=== PATIENT | female | born 1945 | race Caucasian/White ===

== ENCOUNTER 2021-09-09 10:58 | Outpatient (RCR) | payer MEDICARE, SELFPAY ==
[2021-09-09 11:52] VITALS: PULSE 78
== END 2021-09-26 15:27 | disposition home or self-care (01) ==
LOC: ANHCPREHAB 10:58
PROVIDERS: PCP Physician Assistant
DX: J43.9 Emphysema, unspecified (principal)
CPT/HCPCS: 94625

== ENCOUNTER 2025-05-07 10:55 | Emergency (ER) | payer MEDICARE, SELFPAY ==
[2025-05-07] VITALS (15 sets, daily range): BP systolic 92–163; BP diastolic 75–114; PULSE 64–155; RESP 18–22; TEMP 36.2–36.5; O2SAT 95–100
--- NOTE | ~2025-05-07 | CT_ITS ---
EXAMINATION: CT brain wo con DATE: 05/07/2025 14:05 INDICATION: Trauma TECHNIQUE: Computed tomography (CT) of the head was performed without intravenous contrast. The dose-length product was 605.33 mGy-cm. COMPARISON: October 15, 2017 FINDINGS: No discrete or mass effect or hemorrhage. Chronic microvascular ischemic appearing white matter changes and old bilateral basal ganglia lacunar infarctions similar. No calvarial fracture. Small to moderate amount of edema and small hematoma present in the high left parietal scalp approaching the vertex. No suspicious radiopaque foreign body seen. IMPRESSION: 1. No acute intracranial abnormality or bleed. 2. Small high left parietal scalp hematoma with small to moderate amount of soft tissue swelling. Reviewed, dictated and finalized at location A. RADIATION ONCOLOGY IMPRESSION: 1. No acute intracranial abnormality or bleed. 2. Small high left parietal scalp hematoma with small to moderate amount of sof t tissue swelling.
--- NOTE | 2025-05-07 11:19 | ECG_ITS ---
Test Date: 2025-05-07 11:27:02 Measurements Intervals [place] Rate: 142 P: 0 OH: 0 QRS: 87 QRSD: 114 T: 46 QT: 311 QTc: 479 Interpretive Statements ATRIAL FIBRILLATION WITH RAPID VENTRICULAR RESPONSE RIGHT BUNDLE BRANCH BLOCK Electronically Signed On 05-07-2025 11:28:32 SMASH HAND by Isaiah Paulson D.O
[2025-05-07 11:48] LABS: Hematocrit 35.7 % (37.0-47.0); Hemoglobin 12.1 g/dL (12.0-15.0); Immature Granulocyte Percent A 0.7 % (0-0.5); Lymphocytes Absolute Auto 3.89 K/mm3 (0.9-3.2); Mean Corpuscular HGB Conc 33.9 g/dl (32-36); Mean Corpuscular Hemoglobin 31.8 pg (26-34); Mean Corpuscular Volume 93.7 fl (80-100); Nucleated Red Blood Cells Absolute Auto 0.000 K/mm3 (0.0-0.012); Nucleated Red Blood Cells Perc 0.0 % (0.0-0.2); Platelet Count Result 273 k/mm3 (150-375); Red Blood Count 3.81 M/mm3 (4.2-5.4); White Blood Count 10.0 K/mm3 (4.5-10.0)
[2025-05-07 12:01] LABS: Alanine Aminotransferase 26 U/L (6-35); Albumin Level 4.2 g/dL (3.5-5.1); Alkaline Phosphatase 76 U/L (38-126); Anion Gap 6 mmol/L (4-12); Aspartate Amino Transferase 30 U/L (14-36); Bilirubin,Total 0.7 mg/dL (0.2-1.3); Blood Urea Nitrogen 25 mg/dL (7-17); Calcium 9.1 mg/dL (8.4-10.2); Carbon Dioxide 29 mmol/L (22-30); Chloride 96 mmol/L (98-107); Estimated CRCL calculation 37 ml/min; Estimated Glomerular Filt Rate 48; Glucose 92 mg/dL (65-110); Lipase 127 U/L (23-300); Potassium 3.8 mmol/L (3.4-5.0); Sodium 131 mmol/L (137-145); Total Protein 6.6 g/dL (6.3-8.2)
[2025-05-07 12:04] LABS: INR 1.0; Prothrombin Time 13.4 Seconds (11.1-14.7)
[2025-05-07 12:05] LABS: Partial Thromboplastin Time 21.3 Seconds (22.3-36.8)
[2025-05-07 12:12] LABS: Troponin I < 0.012 ng/mL (0.000-0.034)
[2025-05-07] MEDS: LACTATED RINGERS 1,000 ML 999 ML IV CONT ×2 (12:42→15:40)
[2025-05-07] MEDS: METOPROLOL TARTRATE INJ 5 MG/5 ML VIAL IV PUSH ×2 (12:44→14:28)
--- NOTE | 2025-05-07 14:26 | ED.GENADULT ---
HPI - General Adult General Chief complaint: Fall Stated complaint: fell 05/04/25 hit head Time Seen by Provider: 05/07/25 12:53 History of Present Illness HPI narrative: 80-year-old female present to the emergency department for evaluation for head injury. Patient reports that she was walking her dog and tripped on Wednesday and struck her head. Patient present to the emergency department today for evaluation because the wound was continuing to bleed. Patient is on blood thinners. Patient denies any other pain or injury. Patient does have history of AFib with RVR and patient's heart rate was 140 at evaluation. Patient is on metoprolol but did not take this medication this morning. Related Data Home Medications ?Medication ?Instructions ?Recorded ?Confirmed ?Last Taken ?Type albuterol sulfate 90 mcg/actuation 1 puff inhalation Q4H PRN 08/25/21 09/09/21 Unknown History aerosol inhaler Shortness Of Breath apixaban 5 mg tablet (Eliquis) 5 mg PO BID 08/25/21 09/09/21 Unknown History atorvastatin 40 mg tablet 40 mg PO DAILY 08/25/21 09/09/21 Unknown History metoprolol succinate 25 mg 25 mg PO BID 08/25/21 09/09/21 Unknown History tablet,extended release 24 hr triamterene 37.5 1 tablet PO BID 08/25/21 09/09/21 Unknown History mg-hydrochlorothiazide 25 mg tablet benzonatate 200 mg capsule 600 mg PO DAILY 09/09/21 09/09/21 Unknown History budesonide 160 mcg-glycopyr 9 2 inh inhalation BID 09/09/21 09/09/21 Unknown History mcg-formot 4.8 mcg/actuation HFA inhaler (Breztri Aerosphere) Allergies Allergy/AdvReac Type Severity Reaction Status Date / Time No Known Allergies Allergy Verified 05/07/25 11:03 Review of Systems Review of Systems: All systems reviewed & are unremarkable except as noted in HPI and below PMFSH Past Medical History Medical History (Updated 05/07/25 @ 17:48 by Steven Irene MD) Age related osteoporosis COPD (chronic obstructive pulmonary disease) CAD (coronary artery disease) Arthritis Anxiety Family History Family History (System 12/05/21 @ 12:07 by Hector Barksdale) Sibling Malignant neoplasm of prostate Mother Family history of emphysema Father Hypertension Grandparent Cerebrovascular accident Social History Social History (System 12/05/21 @ 12:07 by Hector Barksdale) Smoking packs per day: 0.5 Smoking cigarettes per day: 10.0 Years smoked: 30 Smoking pack-years: 15.00 Smoking status: Former smoker Tobacco type: cigarettes Second hand tobacco smoke exposure: No Smoking end date: 06/21/13 Alcohol intake: current Substance use: unknown Exam Narrative: APPEARANCE: Well appearing, no pain, no distress, well-nourished. HEAD: Posterior scalp hematoma with no active bleeding from a small laceration EYES: PERRLA/EOMI, conjunctivae clear. NOSE: Normal no drainage EARS:TMS clear with good light reflex. THROAT: Pharynx clear, no exudate. NECK: Supple. No adenopathy, no masses. RESPIRATORY: Airway patent, respirations nonlabored. Clear to auscultation bilaterally, no rales, rhonchi, wheezing. CARDIOVASCULAR: AFib with RVR ABDOMINAL: Soft, nontender, nondistended, normal bowel sounds MUSCULOSKELETAL: Moves all extremities. Strength/ROM intact, No edema, No calf tenderness. NEURO: Alert. Cranial nerves II through XII intact. Good gait. Good coordination SKIN: Warm, dry. Normal Color Course Vital Signs Vital signs: Vital Signs Temperature 97.2 F L 05/07/25 11:02 Pulse Rate 64 05/07/25 11:02 Respiratory Rate 20 05/07/25 11:02 Blood Pressure 163/89 H 05/07/25 11:02 Pulse Oximetry 95 05/07/25 11:02 Oxygen Delivery Room Air 05/07/25 11:02 Temperature 97.7 F 05/07/25 18:00 Pulse Rate 118 H 05/07/25 18:00 Respiratory Rate 22 H 05/07/25 18:00 Blood Pressure 113/97 H 05/07/25 18:00 Pulse Oximetry 95 05/07/25 18:00 Oxygen Delivery Room Air 05/07/25 11:20 Medical Decision Making [facility] Narrative Medical decision making narrative: [age] year old female present to the emergency department for evaluation for a head injury that occurred 2 days ago. No laceration requiring repair. Head CT was negative. Patient does have AFib with RVR did not take her morning medication. Patient's heart rate did improve with a L of lactated Ringer's, IV metoprolol, her morning dose of p.o. metoprolol and a dose of Cardizem. Patient was anxious about being here and states she gets anxious her heart rate becomes elevated. Patient was offered admission for AFib with RVR but patient states she believes this is due to her anxiety and patient strongly prefers to be discharged home. Patient was educated on reasons to return to the emergency department. Differential Diagnosis Differential Diagnosis: Subdural hematoma, subarachnoid hemorrhage, tachycardia, AFib, a flutter, pneumonia, COVID, RSV influenza, dehydration, anxiety Vital Signs Vital Signs: Vital Signs Temperature 97.2 F L 05/07/25 11:02 Pulse Rate 64 05/07/25 11:02 Respiratory Rate 20 05/07/25 11:02 Blood Pressure 163/89 H 05/07/25 11:02 Pulse Oximetry 95 05/07/25 11:02 Oxygen Delivery Room Air 05/07/25 11:02 Temperature 97.7 F 05/07/25 18:00 Pulse Rate 118 H 05/07/25 18:00 Respiratory Rate 22 H 05/07/25 18:00 Blood Pressure 113/97 H 05/07/25 18:00 Pulse Oximetry 95 05/07/25 18:00 Oxygen Delivery Room Air 05/07/25 11:20 Lab Data Lab results reviewed: Yes I reviewed the patient's lab results. 05/07/25 11:40 05/07/25 11:40 Labs: Lab Results 05/07/25 Range/Units 11:40 WBC 10.0 (4.5-10.0) K/mm3 RBC 3.81 L (4.2-5.4) M/mm3 Hgb 12.1 (12.0-15.0) g/dL Hct 35.7 L (37.0-47.0) % MCV 93.7 (80-100) fl MCH 31.8 (26-34) pg MCHC 33.9 (32-36) g/dl RDW 14.0 (11.5-14.5) % Plt Count 273 (150-375) k/mm3 MPV 9.8 (7.4-10.4) fl Immature Gran % (Auto) 0.7 H (0-0.5) % Neut % (Auto) 47.4 (45.5-73.1) % Lymph % (Auto) 39.0 (18.3-44.2) % Reeves % (Auto) 11.9 H (2.6-8.5) % Eos % (Auto) 0.5 (0-4.4) % Baso % (Auto) 0.5 (0.2-1.2) % Lymph # (Auto) 3.89 H (0.9-3.2) K/mm3 Reeves # (Auto) 1.2 H (0.1-0.6) K/mm3 Eos # (Auto) 0.1 (0-0.3) K/mm3 Baso # (Auto) 0.1 (0.0-0.1) K/mm3 Abs Immat Gran (auto) 0.07 H (0.00-0.031) K/mm3 Absolute Neuts (auto) 4.7 (1.3-6.7) K/mm3 Absolute Nucleated RBC 0.000 (0.0-0.012) K/mm3 Nucleated RBC % 0.0 (0.0-0.2) % PT 13.4 (11.1-14.7) Seconds INR 1.0 APTT 21.3 L (22.3-36.8) Seconds Sodium 131 L (137-145) mmol/L Potassium 3.8 (3.4-5.0) mmol/L Chloride 96 L (98-107) mmol/L Carbon Dioxide 29 (22-30) mmol/L Anion Gap 6 (4-12) mmol/L BUN 25 H (7-17) mg/dL Creatinine 1.09 H (0.7-1.0) mg/dL Estim Creat Clear Calc 37 ml/min Estimated GFR 48 L (59 - ) Glucose 92 (65-110) mg/dL Calcium 9.1 (8.4-10.2) mg/dL Total Bilirubin 0.7 (0.2-1.3) mg/dL AST 30 (14-36) U/L ALT 26 (6-35) U/L Alkaline Phosphatase 76 (38-126) U/L Troponin I < 0.012 (0.000-0.034) ng/mL Total Protein 6.6 (6.3-8.2) g/dL Albumin 4.2 (3.5-5.1) g/dL Lipase 127 (23-300) U/L Imaging Data Radiologist's impression: Impressions Head CT 11/17/25 14:08 IMPRESSION: 1. No acute intracranial abnormality or bleed. 2. Small high left parietal scalp hematoma with small to moderate amount of soft tissue swelling. Discharge Plan Discharge Clinical Impression: Atrial fibrillation with rapid ventricular response, Head injury Patient Disposition: Home Condition: Stable Instructions: Antibiotic Form, A-fib (Atrial Fibrillation) (ED), Head Injury (ED) Additional Instructions: You were offered admission for your rapid heart rate but you preferred to be discharged home. If your heart rate is not well controlled at home then you need to return to the emergency department. Wound care as directed for the head injury. Have close follow-up with your primary care physician. Patient Language: Croatian Prescriptions: No Action metoprolol succinate 25 mg tablet extended release 24 hr 25 mg PO BID triamterene-hydrochlorothiazid 37.5-25 mg tablet 1 tablet PO BID atorvastatin 40 mg tablet 40 mg PO DAILY Eliquis 5 mg tablet 5 mg PO BID albuterol sulfate 90 mcg/actuation HFA aerosol inhaler 1 puff inhalation Q4H PRN (Reason: Shortness Of Breath) cyclobenzaprine 10 mg tablet 10 mg PO QHS Qty: 30 0RF benzonatate 200 mg Capsule 600 mg PO DAILY Breztri Aerosphere 160-9-4.8 mcg/actuation Hfa Aerosol Inhaler 2 inh INHALATION BID Follow-up/Referrals: Jesus,PRAVEENA LirianoP [Primary Care Provider, Unknown]
[2025-05-07] MEDS: METOPROLOL SUCCINATE EXT REL 25 MG TABCR PO (14:35)
--- OUTSIDE RECORDS SUMMARY | 2025-05-07 20:25 | XMS_ITS | Data Portability ---
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 Presenting with bilateral lower extremity pain at rest. She has upper extremity weakness and numbness/tingling . She applies a brace to her hands at night which helps her symptoms. She reports a previous provider has ordered a nerve conduction study, but has not completed the exam yet. She describes her feet as if she has mittens on them with a decreased sensation to her feet. The cramping to her bilateral lower extremities is her greatest concern. This most likely represents critical limb ischemia which puts her at a high risk for skin breakdown and/or loss of limb. She also displays symptoms of venous insufficiency with lower extremity edema and cramping that impacts her quality of sleep. My recommendation is lower extremity arterial and venous ultrasound for further evaluation. Of note, I discussed with her a possible upper extremity ultrasound to be performed due to the weakness to her upper extremities. However I explained to her I suspect the symptoms in her upper extremities are likely nerve related due to the nature of her symptoms (weakness, numbness, tingling). I strongly suggested she speak to her primary care provider for possible cervical and nerve involvement. I spent a total of 45 minutes with the patient. The time was spent reviewing the chart ,discussing with patient and/or family and forming a treatment plan. [email or web address] Not available 09/19/2022 00:41:41 Plan of Treatment Reminders Order Date Submit Date Provider Last Modified By Organization Details Last Modified Time Details Appointments None record ed. Lab None record ed. Referral None record ed. Procedures None record ed. Surgeries None record ed. Imaging None record ed. Medication Orders None record ed. Patient TargetsNo targets recorded. Patient InstructionsNo instructions recorded. Reason for Referral None Reported. Problems Name Problem SNOMED Code Status Onset Date Resolution Date Notes Provider Name and Address Organization Details Recorded Time Anxiety 22669048 Active 2022 davi benedict null, [place] - [facility] 3 12:56:58 Eczema 70661567 Active 2022 davi benedict [place] - [facility] 3 12:57:07 Atrial fibrillation 66782521 Active 2022 davi benedict [place], [place] - [facility] 3 12:57:18 Chronic obstructive pulmonary disease 44392683 Active 2022 davi benedict [place] - [facility] 3 12:57:27 Hyperlipidemia 17538324 Active 2022 davi benedict [place] [facility] 3 12:57:35 Cerebrovascular disease 81259716 Active 2022 davi benedict null, [place] - [facility] 3 12:57:45 Problem Notes None recorded. Medical Equipment None Reported. Allergies No known drug allergies Medications Name Sig Start Date Stop Date Status Note LastModified by Organization Details LastModified Time triamterene 37.5 mg-hydrochlo rothiazide 25 mg tablet Take 1 tablet every day by oral route. active Not Available Not Available No t Available atorvastatin active Not Available Not Available Not Available metoprolol tartrate active Not Available Not Available Not Available Symbicort 160 mcg-4.5 mcg/actuatio n HFA aerosol inhaler Inhale 2 puffs twice a day by inhalation route. active Not Available Not Available No t Available Eliquis 5 mg tablet Take 1 tablet twice a day by oral route. active Not Available Not Available No t Available Breztri Aerosphere 160 mcg-9mcg-4.8 mcg/actuatio n HFA aerosol inhaler INHALE 2 PUFFS BY MOUTH TWICE DAILY active Not Available Not Available No t Available Vitals Date Recorded Body height Body mass index (BMI) Body weight Provider Name and Address Organization Details Last Updated DateTime 09/18/2022 162.56 cm 28 kg/m2 28268.56 g davi benedict [place] - [facility] 09/18/2022 13:02:13 Social History Question Answer Notes LastModified by Organizat ion Details LastModified Time Tobacco Smoking Status Former Smoker davi benedict null, [place] - [facility] 09/18/2022 13:04:04 What Was The Date Of Your Most Recent Tobacco Screening? 09/18/2022 [email or web address] Information not available 09/18/2022 How Many Years Have You Smoked Tobacco? 30 [email or web address] Information not available 09/18/2022 Sex: Unknown Functional Status None recorded. Mental Status None recorded. Family History Nothing Reported. Medical History No medical history recorded. Gynecological HistoryNo gynecological history recorded. Obstetrics History GPAL:G 0 P 0 0 0 0 Past Encounters Encounter ID Performer Location Encounter Start Date Encounter Closed Date Diagnosis/Indication Diagnosis SNOMED-CT Code Diagnosis ICD10 Code Diagnosis IMO Codes Diagnosis Note [id number] Rajat Ferrara MD [address] [address] 09/18/2022 12:24:46 10/02/2022 15:46:58 Bilateral lower limb pain at rest due to atherosclerosis 9303027317 9537079 I70.223 Edema of l ower extremity 133905990 R60.0 Varicose v eins of lower extremity 56202046 I83.893 Ex-smoker 8717763 Z87.89 1 Health Concerns Section Related Observation LastModified by Organization Detai ls LastModified Time None Recorded Concern Status LastModified by Organization Details LastModified Time None Recorded Advance Directives Directive None Recorded Payers Insurance Date Sequence Insurance Name Policy Number Policy Avery Covered Member ID Avery Member ID Guarantor Name 10/06/2022 1 [facility] (MEDICARE REPLACEMENT/ ADVANTAGE - HMO) [id number] [facility] [id number] [facility] Notes Date Note Type Note Provider Name and Address Organization Details Recorded Time 3 text/html OA Arterial Occlusive Disease: Lower ExtremityReported by PatientHPIFor severity, patient reportsmoderate. For associated symptoms, patient reportsweaknessandnumbness /tingling. For location, patient reportsbilateral le (left worse than the right). For quality, patient reportscramping,burning,ac blossom,weakness, andtingling. For onset/timing, patient reportsat night,with exercise begins at <1/2 block, andwakes from sleep. For context, patient reportstobacco use(former smoker). For alleviating factors, patient reportsrestandelevation. For aggravating factors, patient reportswalking,standing, andbending over.She has history of left great toe surgery which has caused her balance to be altered. Varicose Vein or Venous insufficiencyReported by PatientHPIFor associated symptoms, patient reportsnumbness,tingling, andcharacter: cramping. For severity, patient reportsmoderate. For location, patient reportsbilateral. For quality, patient reportsworsening. For onset, patient reportsgradual onset. For functional status, patient reports(normal) activities of daily living. For sleep, patient reportssleep disturbances: insomnia: difficulty falling asleep: because of pain. For alleviating factors, (she wears ankle high compression socks.).Past Medical HistoryFor prior imaging, patient reportsnone. CHIO SLOAN, HEMSTITCHING MACHINE OPERATOR [id number] [facility], [place] [address], [place], [address], [facility] and 09/19/2022 00:41:50 OBGyn Episode No OBEpisode recorded.
== END 2025-05-07 18:05 | disposition home or self-care (01) ==
PROVIDERS: Emergency Provider Emergency Medicine; PCP Nurse Practitioner Family
DX: S01.01XA Laceration without foreign body of scalp, initial encounter (principal); I48.91 Unspecified atrial fibrillation; I25.10 Atherosclerotic heart disease of native coronary artery without angina pectoris; J44.9 Chronic obstructive pulmonary disease, unspecified; M19.90 Unspecified osteoarthritis, unspecified site; M81.0 Age-related osteoporosis without current pathological fracture; F41.9 Anxiety disorder, unspecified; Z87.891 Personal history of nicotine dependence; Z79.01 Long term (current) use of anticoagulants; Z79.899 Other long term (current) drug therapy; W01.0XXA Fall on same level from slipping, tripping and stumbling without subsequent striking against object, initial encounter; Y93.K1 Activity, walking an animal
CPT/HCPCS: 36415; 70450; 80053; 83690; 84484; 85025; 85610; 85730; 93005; 94640; 96361; 96374; 96375; 96376; 99284; A9270; J0616; J1163; J7120